=== PATIENT | female | born 1985 | race Caucasian/White ===

== ENCOUNTER 2021-04-23 13:14 | Outpatient (REF) | payer OTHER, SELFPAY ==
[2021-04-23 14:24] LABS: COVID-19 Test Positive (Negative)
== END 2021-04-23 13:15 | disposition home or self-care (01) ==
LOC: HO.LAB 13:14
PROVIDERS: Visit Provider Internal Medicine
DX: Z20.822 Contact with and (suspected) exposure to COVID-19 (principal)
CPT/HCPCS: 36415; 87635

== ENCOUNTER 2024-03-11 15:13 | Outpatient (AMB) | payer OTHER, SELFPAY ==
[2024-03-11 15:15] VITALS: BP 144/82; PULSE 68; O2SAT 98; BMI 44.2
--- NOTE | 2024-03-11 15:15 | MHC.PC.OV ---
Vital Signs 03/11/24 15:15 Height 5 ft 8 in Weight 291 lb 0.2 oz BMI 44.2 BP 144/82 H Blood Pressure Location Lt radial Position Sitting Pulse 68 Pulse Source Pulse Oximeter Pulse Oximetry (%) 98 Oxygen Delivery Method Room Air Intake Visit Reasons: not feeling well (diabetic) Hatchery Supervisor Required: No Allergies No Known Allergies [No Known Allergies*] Allergy (Verified 03/11/24 15:39) Medication List - Last Reconciled 03/11/24 by Loly Madrid PA-C metformin 500 mg PO BID Tobacco use date assessed: 03/11/24 Dental Screening Dental Screen Date: 03/11/24 Did you have a dental visit in the last 12 months?: Yes Did you have a dental problem in the last 6 months where you did not have access to dental care?: No Was dental information given to patient?: Patient has dentist HPI not feeling well (diabetic) HPI Details 38-year-old female with no documented past medical history being seen for the 1st time not known to [place]. She was previously being seen by [facility] and is transferring care to our office. In the past she had been diagnosed with diabetes mellitus with A1c around 8% and started on Metformin. She had one episode of lightheadedness and feeling off last weekend which has no resolved. She mentions she has a history of anxiety and sometimes has breakthrough episodes where she feels angry and does not know why. She also mentions she has chronic skin changes on her lower extremities which have greatly improved with weight loss and better diet. She has not been seen by gynecology recently and last pap was over 2 years ago. [facility] Social History (Updated 03/11/24 @ 16:37 by Loly Madrid PA-C) Housing: House Patient Tobacco Use Status: Current everyday Tobacco user e-Cigarette/Vaping Use: Never Used Substance Use Type: Marijuana service: No Current occupational status: employed Current occupation: [employer] Cognitive needs: No Hearing needs: No Vision needs: No Questionnaire PHQ-9 Over the last 2 weeks, how often have you been bothered by any of the following problems? 1. Little interest or pleasure in doing things: several days 2. Feeling down, depressed, or hopeless: several days 3. Trouble falling or staying asleep, or sleeping too much: nearly every day 4. Feeling tired or having little energy: more than half the days 5. Poor appetite or overeating: several days 6. Feeling bad about yourself - or that you are a failure or have let yourself or your family down: several days 7. Trouble concentrating on things, such as reading the newspaper or watching television: more than half the days 8. Moving or speaking so slowly that other people could have noticed. Or the opposite - being so fidgety or restless that you have been moving around a lot more than usual: more than half the days 9. Thoughts that you would be better off or of hurting yourself in some way: not at all Total score: 13 Depression Screening Interpretation: Positive Depression Screening Follow-up: New Medication prescribed Depression Screening Done: Yes 36409 - PHQ-9 Billing: Yes Source: Developed by Drs. James Miramontes, Shelby Cruz, Tirso Becker and colleagues, with an educational rod from [employer]. Thrive Questionnaire Date Thrive assessed: 03/11/24 I am a: Patient What is your living situation today?: I have a steady place to live Within the past 12 months, did the food you bought not last and you didn't have the money to get more?: Never true Within the past 12 months, did you worry whether your food would run out before you got money to buy more?: Never true Do you have trouble paying for medicines?: No Do you have trouble getting transportation to medical appointments?: No Do you have trouble paying your heating and electricity bill?: No Do you have trouble taking care of your child, family member or friend?: No Do you have trouble with day-to-day activities such as bathing, preparing meals, shopping, managing finances, etc.?: No Are you currently unemployed and looking for a job?: No Are you interested in more education?: No Please select the resources that you would like help with: None Currently or been in a relationship where the following occur: No concerns reported THRIVE Score: 0 AUDIT C Alcohol Use Questionnaire (AUDIT-C) 1. How often do you have a drink containing alcohol?: Monthly or less 2. How many drinks containing alcohol do you have on a typical day when you are drinking?: 1 or 2 3. How often do you have six or more drinks on one occasion?: Never Total Score: 1 JATIN-7 AMB Questionnaire JATIN-7 Date JATIN - 7 assessed: 03/11/24 Feeling nervous, anxious, or on edge: 2 = More than half the days Not being able to stop or control worryin = More than half the days Worrying too much about different things: 1 = Several days Trouble relaxin = Nearly every day Being so restless that it is hard to sit still: 1 = Several days Becoming easily annoyed or irritable: 2 = More than half the days Feeling afraid as if something awful might happen: 1 = Several days Total JATIN-7 score (0-4 normal; 5-9 mild; 10-14 moderate; 15-21 severe): 12 Source: Developed by Drs. James Miramontes, Shelby Cruz, Tirso Becker and colleagues, with an educational rod from [employer]. JATIN-7 Assessment Billing JATIN-7 Assessment Tool: JATIN-7 Assessment 47131 Review of Systems Const Denies body aches, Denies fatigue, Denies fever(s), Denies frequent falls, Denies headache(s) and Denies weakness Eyes Reports no additional complaints and Denies change in vision ENT Denies dysphagia, Denies dizziness, Denies facial pain, Denies headache(s), Denies nasal congestion and Denies odynophagia Card Denies chest pain, Denies syncope, Denies irregular heart rhythm, Denies leg edema, Denies lightheadedness and Denies dyspnea Resp Denies cough and Denies dyspnea GI Denies constipation, Denies dysphagia, Denies dyspepsia, Denies diarrhea, Denies nausea, Denies odynophagia and Denies vomiting Denies urinary frequency, Denies dysuria, Denies urinary hesitancy and Denies urinary urgency Musc Denies back pain and Denies myalgias Skin/Breast Reports as per HPI Neuro Denies dizziness, Denies syncope, Denies frequent falls, Denies headache(s) and Denies weakness Psych Reports no additional complaints Endo Denies fatigue Physical exam (Primary Care) Vital Signs: Last Vital Signs Pulse 68 03/11/24 15:15 BP 144/82 H 03/11/24 15:15 Pulse Ox 98 03/11/24 15:15 Oxygen Delivery Method Room Air 03/11/24 15:15 BMI result Body Mass Index 44.2 BMI Assessment/Plan discussion: High BMI High, discussed plan: lifestyle, dietary and physical activity Tobacco/Smoking Status: Tobacco use Status Tobacco use date assessed 03/11/24 03/11/24 15:17 Patient Tobacco Use Status Current everyday Tobacco 03/11/24 15:27 e-Cigarette/Vaping Use Never Used 03/11/24 15:48 Are you ready to quit: Yes Tobacco cessation counseling provided: Yes Items discussed: Nicotine replacement and Other (Wellbutrin) Relapse Prevention: discussed the importance of a supportive environment and discussed dietary, exercise and/or lifestyle changes Number of minutes spent counselin CPT code: 86393 - 4-10 Minutes PHQ-9: PHQ-9 Score PHQ-9: Total score 13 03/11/24 15:32 Depression Screening Interpretation: Positive Depression Screening Follow-up: New Medication prescribed Thrive Assessment: Date of Thrive Assessment Date Thrive assessed 03/11/24 03/11/24 15:17 Currently or been in a relationship where the following occur: No concerns reported Const General: cooperative, healthy appearing, comfortable and no acute distress Orientation/consciousness: patient oriented x3 HENMT Head: Yes normocephalic Ears: hearing grossly normal bilaterally General nose exam: Normal external nose present Eyes General: appearance normal, both eyes and all related structures Conjunctivae: conjunctivae normal Neck Neck: Yes full ROM and Yes no lymphadenopathy Resp Effort & Inspection: normal respiratory effort Auscultation: clear to auscultation bilaterally, no crackles, no rales, no rhonchi and no wheezes Cardio Rate: regular rate Rhythm: regular rhythm Skin General skin exam: no rashes or lesions noted Neuro General: patient oriented x3 Gait exam (Neuro): Normal gait present Extrem General: Yes normal to inspection, Yes full ROM and No edema Psych Affect: normal affect Attitude: cooperative Insight: Good insight present (Psych) Judgement: Good judgement present (Psych) Results AMB Hemoglobin A1c AMB Hemoglobin A1c 5.4 % Last Edit by KANU Arcos on 03/11/24 15:32 Results Reviewed Results Reviewed: Laboratory Last Values Hgb A1c (Clinic) 5.4 % (4.0-6.0) 03/11/24 15:31 Assessment and Plan Assessment & Plan (1) Diabetes mellitus: Code(s): E11.9 - Type 2 diabetes mellitus without complications Plan: A1c in the office today was 5.4% which is at goal for this patient. She has been working on diet and weight loss along with taking Metformin without complication or side effects. She did have one episode of lightheadedness last weekend which may have been related to hypoglycemia. Advised her to take blood sugars daily and if values are below 100 or she continues to have lightheadedness decrease Metformin to once daily and reevaluate blood sugars. Decrease the amount of carbohydrates such as pasta, bread, rice, and potatoes and limit the amount of sweets. Although fruits are generally healthy they should be eaten in moderation as they are still high in sugar. Hemoglobin A1c goal of less than 7%. (2) Anxiety: Code(s): F41.9 - Anxiety disorder, unspecified Plan: Patient has a history of anxiety and has been having intermittent breakthrough episodes anxiety and anger. She has not been treated for anxiety in the past and is not interested in a counselor at this time. She is interested in starting antianxiety medication but does not want SSRIs. We will trial Wellbutrin for anxiety, depression, and smoking cessation along with hydroxyzine as needed for breakthrough episodes of anxiety. Counseled on side effects of medications. Follow up in 2 months for re-evaluation. (3) Leg swelling: Code(s): M79.89 - Other specified soft tissue disorders Plan: Patient has chronic lower extremity leg swelling with overlying skin changes bilaterally. Advised patient to trial compression stockings with leg elevation and decrease salt intake. If skin becomes red or warm or he began to have fevers please come in to be evaluated. (4) Elevated blood-pressure reading without diagnosis of hypertension: Code(s): R03.0 - Elevated blood-pressure reading, without diagnosis of hypertension Plan: Patient's blood pressure was elevated today 144/82. No history of hypertension. Advised patient to take blood pressures and keep a log at home 3-4 times per week and follow up in 2 months for re-evaluation. (5) Tobacco abuse: Code(s): Z72.0 - Tobacco use Plan: She smokes about 1 pack of cigarettes a day. Patient is interested in smoking cessation we will trial Wellbutrin for smoking cessation and anxiety. Patient was also prescribed nicotine gum for breakthrough cravings. Plan This note was constructed using voice recognition software. While every effort has been made to ensure accuracy and sprinkler irrigation equipment mechanic, still areas may have been included sometimes these areas may affect the content or meeting of the given symptoms. Total time spent caring for the patient today was 45 minutes. This includes time spent before the visit reviewing the chart, time spent during the visit, and time spent after the visit and documentation. Orders: Orders Complete Blood Count Auto Diff Today Z00.00 - Encounter for general adult medical examination without abnormal findings Thyroid Stimulating Hormone Today Z00.00 - Encounter for general adult medical examination without abnormal findings Rheumatoid Factor Today Z00.00 - Encounter for general adult medical examination without abnormal findings AMB Hemoglobin A1c Today Z13.9 - Encounter for screening, unspecified Comprehensive Met. Panel Today Z00.00 - Encounter for general adult medical examination without abnormal findings Lipid Panel Today Z00.00 - Encounter for general adult medical examination without abnormal findings Free T4 (Free Thyroxine) Today Z00.00 - Encounter for general adult medical examination without abnormal findings Microalbumin, Random (w Creat) Today Z00.00 - Encounter for general adult medical examination without abnormal findings Creatinine Urine Today Z00.00 - Encounter for general adult medical examination without abnormal findings Referrals CLASSIFIED ADVERTISING CLERK Referral Z00.00 - Encounter for general adult medical examination without abnormal findings Medications: New metformin 500 mg PO BID 60 tabs 3RF nicotine (polacrilex) 4 mg buccal Q2H 20 ea 3RF bupropion HCl SR (Wellbutrin SR) one pill daily Q7 days; increase to silvia daily if tolerated. 100 mg PO DAILY 30 tabs 3RF F41.9 - Anxiety disorder, unspecified hydroxyzine HCl 25 mg PO BID PRN 30 tabs 1RF anxiety Coding Level of Care Code New Pt Level 4 (76996) Diagnoses Diabetes mellitus E11.9 Anxiety F41.9 Leg swelling M79.89 Elevated blood-pressure reading without diagnosis of hypertension R03.0 Tobacco abuse Z72.0 Additional Codes JATIN-7 Assessment Billing - JATIN-7 Assessment Tool: JATIN-7 Assessment 38402 ([id number]) Vital Signs *Quality* - CPT code: 12041 - 4-10 Minutes ([id number])
== END 2024-03-11 16:25 | disposition home or self-care (01) ==
DX: E11.9 Type 2 diabetes mellitus without complications (principal); F41.9 Anxiety disorder, unspecified; F17.210 Nicotine dependence, cigarettes, uncomplicated; M79.89 Other specified soft tissue disorders; R03.0 Elevated blood-pressure reading, without diagnosis of hypertension
CPT/HCPCS: 83036; 96127; 99204

== ENCOUNTER 2024-04-27 14:21 | Outpatient (AMB) | payer OTHER, SELFPAY ==
[2024-04-27 14:25] VITALS: BP 152/94; PULSE 67; O2SAT 96; BMI 43.3
--- NOTE | 2024-04-27 14:25 | MHC.PC.OV ---
Vital Signs 04/27/24 14:25 Height 5 ft 8 in Weight 285 lb BMI 43.3 BP 152/94 H Blood Pressure Location Lt brachial Position Sitting Pulse 67 Pulse Source Pulse Oximeter Pulse Oximetry (%) 96 Oxygen Delivery Method Room Air Intake Visit Reasons: rash [employer]er Required: No Accompanied by: Self / Same As Patient Allergies No Known Allergies [No Known Allergies*] Allergy (Verified 04/27/24 14:26) Medication List - Last Reconciled 04/27/24 by Loly Madrid PA-C bupropion HCl SR (Wellbutrin SR) 100 mg PO DAILY hydroxyzine HCl 25 mg PO BID PRN metformin 500 mg PO BID nicotine (polacrilex) 4 mg buccal Q2H Tobacco use date assessed: 03/11/24 Dental Screening Dental Screen Date: 03/11/24 HPI rash HPI Details 38-year-old female with past medical history of diabetes mellitus, anxiety, and tobacco abuse coming to the office for an acute problem. Patient states she has had issues with a facial rash for several months and has been seen by an urgent care in [facility] and given clotrimazole betamethasone cream. She has been using the cream on and off since November for her flares which seems to improve the rash. She has no identifiable trigger for the rash and when it comes on it will come on in patches on the face. The rash is bright red and itchy and will often flaky before improving. She has recently run out of the betamethasone clotrimazole cream and has been using plain clotrimazole with mild relief. Denies any new soaps, detergents, foods, or allergens in the house. [facility] Social History (Updated 03/11/24 @ 16:37 by Loly Madrid PA-C) Housing: House Patient Tobacco Use Status: Current everyday Tobacco user Tobacco use type: Cigarette e-Cigarette/Vaping Use: Never Used Substance Use Type: Marijuana service: No Current occupational status: employed Current occupation: [employer] Cognitive needs: No Hearing needs: No Vision needs: No Questionnaire PHQ-9 Over the last 2 weeks, how often have you been bothered by any of the following problems? 1. Little interest or pleasure in doing things: several days 2. Feeling down, depressed, or hopeless: several days 3. Trouble falling or staying asleep, or sleeping too much: nearly every day 4. Feeling tired or having little energy: more than half the days 5. Poor appetite or overeating: several days 6. Feeling bad about yourself - or that you are a failure or have let yourself or your family down: several days 7. Trouble concentrating on things, such as reading the newspaper or watching television: more than half the days 8. Moving or speaking so slowly that other people could have noticed. Or the opposite - being so fidgety or restless that you have been moving around a lot more than usual: more than half the days 9. Thoughts that you would be better off or of hurting yourself in some way: not at all Total score: 13 Depression Screening Interpretation: Positive Depression Screening Follow-up: New Medication prescribed Depression Screening Done: Yes 09067 - PHQ-9 Billing: Yes Source: Developed by Drs. James Miramontes, Shelby Cruz, Tirso Becker and colleagues, with an educational rod from [employer] Thrive Questionnaire Date Thrive assessed: 03/11/24 AUDIT C Alcohol Use Questionnaire (AUDIT-C) 2. How many drinks containing alcohol do you have on a typical day when you are drinking?: 1 or 2 3. How often do you have six or more drinks on one occasion?: Never Total Score: 0 JATIN-7 AMB Questionnaire JATIN-7 Date JATIN - 7 assessed: 03/11/24 Source: Developed by Drs. James Miramontes, Shelby Cruz, Tirso Becker and colleagues, with an educational rod from [employer] Review of Systems Const Denies chills and Denies fever(s) Eyes Denies change in vision ENT Reports no additional complaints Card Denies chest pain and Denies dyspnea Resp Denies dyspnea GI Reports no additional complaints Reports no additional complaints Musc Reports no additional complaints Skin/Breast Details: Erythematous, itchy right side of rash on face Physical exam (Primary Care) Vital Signs: Last Vital Signs Pulse 67 04/27/24 14:25 BP 152/94 H 04/27/24 14:25 Pulse Ox 96 04/27/24 14:25 Oxygen Delivery Method Room Air 04/27/24 14:25 BMI result Body Mass Index 43.3 Tobacco/Smoking Status: Tobacco use Status Tobacco use date assessed 03/11/24 04/27/24 14:33 Patient Tobacco Use Status Current everyday Tobacco 04/27/24 14:33 Tobacco use type Cigarette 04/27/24 14:33 e-Cigarette/Vaping Use Never Used 04/27/24 14:33 PHQ-9: PHQ-9 Score PHQ-9: Total score 13 04/27/24 14:33 Depression Screening Interpretation: Positive Depression Screening Follow-up: New Medication prescribed Thrive Assessment: Date of Thrive Assessment Date Thrive assessed 03/11/24 04/27/24 14:33 Const General: cooperative, healthy appearing, comfortable and no acute distress Orientation/consciousness: patient oriented x3 HENMT Head: Yes normocephalic Ears: hearing grossly normal bilaterally General nose exam: Normal external nose present Eyes General: appearance normal, both eyes and all related structures Conjunctivae: conjunctivae normal Neck Neck: Yes full ROM and Yes no lymphadenopathy Resp Effort & Inspection: normal respiratory effort Cardio Rate: regular rate Rhythm: regular rhythm Skin Other: Patchy, erythematous, maculopapular rash on right side of face without crusting, flaking, drainage Neuro General: patient oriented x3 Gait exam (Neuro): Normal gait present Extrem General: Yes normal to inspection, Yes full ROM and No edema Psych Affect: normal affect Attitude: cooperative Insight: Good insight present (Psych) Judgement: Good judgement present (Psych) Assessment and Plan Assessment & Plan (1) Facial rash: Code(s): R21 - Rash and other nonspecific skin eruption Plan: On exam rash looks most consistent with contact dermatitis. Patient has been using betamethasone clotrimazole cream with good relief. She tried hydrocortisone [id number] which made the rash worse. Advised patient to use steroid cream with caution as it may thin skin in the face and not to use longer than 2 weeks. With no identifiable trigger would recommend further investigation with Dermatology. Refilled her prescription today and referral to Dermatology placed. Plan This note was constructed using voice recognition software. While every effort has been made to ensure accuracy and datawarehouse developer, still areas may have been included sometimes these areas may affect the content or meeting of the given symptoms. Total time spent caring for the patient today was 30 minutes. This includes time spent before the visit reviewing the chart, time spent during the visit, and time spent after the visit and documentation. Orders: Referrals Dermatology Referral R21 - Rash and other nonspecific skin eruption Medications: New clotrimazole-betamethasone 1-0.05 % 1 appl topical BID 15 grams 0RF Coding Level of Care Code Est Pt Level 4 (24611) Diagnoses Facial rash R21
== END 2024-04-27 15:08 | disposition home or self-care (01) ==
DX: R21 Rash and other nonspecific skin eruption (principal)
CPT/HCPCS: 99214